=== PATIENT | female | born 1995 | race Caucasian/White ===

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

== ENCOUNTER 2017-07-01 20:42 | Emergency (ER) | payer BC ==
[~2017-07-01] VITALS: Ht 154.9 cm; Wt 61.4 kg
[~2017-07-01 20:42] MED LIST changes: +MIRENA52 MG IY; +NORCO 325 MG-51 TAB PO; +NORGESTIMATE AN1 TAB PO; +ZOFRAN ODT8 MG PO
[2017-07-01 20:43] VITALS: BP 138/91; TEMP 98.3
[2017-07-01 21:46] VITALS: PULSE 77
== END 2017-07-01 21:46 | disposition home or self-care (01) ==
LOC: COL.ER 20:42
DX: S61.217D Laceration without foreign body of left little finger without damage to nail, subsequent encounter (principal); S61.215D Laceration without foreign body of left ring finger without damage to nail, subsequent encounter; S61.213D Laceration without foreign body of left middle finger without damage to nail, subsequent encounter; R20.2 Paresthesia of skin; G43.909 Migraine, unspecified, not intractable, without status migrainosus; W26.8XXD Contact with other sharp object(s), not elsewhere classified, subsequent encounter

== ENCOUNTER 2017-11-25 20:15 | Emergency (ER) | payer BC ==
[~2017-11-25] VITALS: Ht 154.9 cm; Wt 68.2 kg
[2017-11-25 20:18] VITALS: BP 116/78; TEMP 98.3
[2017-11-25] MEDS ORDERED: VYVANSE10 MG PO (20:49)
[2017-11-25 21:28] LABS: COLLECTION METHOD CLEAN CATCH
[2017-11-25 21:41] LABS: MUCOUS Present /lpf; PH 5 (5-8); SQUAMOUS EPITHELIAL 0-2 /hpf; URINE APPEARANCE Clear; URINE BACTERIA Rare /hpf; URINE BILIRUBIN Negative (NEGATIVE); URINE BLOOD 1+ (NEGATIVE); URINE COLOR Amber; URINE GLUCOSE Negative (NEGATIVE); URINE KETONE Negative (NEGATIVE); URINE LEUKOCYTE ESTERASE Negative (NEGATIVE); URINE NITRATE Positive (NEGATIVE); URINE PROTEIN(semi-quant) Negative (NEGATIVE); URINE UROBILINOGEN >=4.0 mg/dL (NEGATIVE)
[2017-11-25] MEDS ORDERED: CEPHALEXIN500 M1 PO (22:05)
[2017-11-25 22:21] VITALS: PULSE 62
== END 2017-11-25 22:31 | disposition home or self-care (01) ==
LOC: COL.ER 20:15
PROVIDERS: Emergency Medicine
DX: N39.0 Urinary tract infection, site not specified (principal); N12 Tubulo-interstitial nephritis, not specified as acute or chronic; F90.9 Attention-deficit hyperactivity disorder, unspecified type; F32.9 Major depressive disorder, single episode, unspecified; F41.9 Anxiety disorder, unspecified; Z90.89 Acquired absence of other organs
CPT/HCPCS: J0696